=== PATIENT | female | born 1960 | race Caucasian/White ===

== ENCOUNTER 2017-02-04 07:53 | Emergency (ER) | payer OTHER ==
[2017-02-04 08:26] LABS: BILIRUBIN NEGATIVE (NEGATIVE); BLOOD 3+ Ery/uL (NEGATIVE); CLARITY CLEAR (CLEAR); COLOR YELLOW (YELLOW); GLUCOSE (U) NORMAL (NORMAL); KETONE (U) NEGATIVE (NEGATIVE); LEUKOCYTES NEGATIVE Leu/uL (NEGATIVE); NITRITE NEGATIVE (NEGATIVE); PROTEIN TRACE (LOW) mg/dL (NEGATIVE); SPECIFIC GRAVITY >=1.030 (1.001-1.030); UROBILINOGEN 0.2 mg/dL (0.2-1.0); pH 5.5 (5.0-9.0)
[2017-02-04 08:37] LABS: BASOPHIL 0.7 % (0-2); EOSINOPHIL 3.9 % (0-5); HCT 42.2 % (37.0-47.0); HGB 13.9 g/dl (12.5-16.0); LYMPHOCYTE 30.7 % (15-48); MCH 31.2 pg (25.0-31.0); MCHC 32.9 g/dL (32.0-36.0); MCV 94.6 fL (78.0-100.0); MONOCYTE 9.7 % (0-12); MPV 10.2 fL (6.0-9.5); PLT 342 K/uL (150-400); RBC 4.46 M/uL (4.20-5.40); RDW 14.4 % (11.5-14.0); WBC 10.2 K/uL (4.0-10.5)
[2017-02-04 08:41] LABS: ALBUMIN 4.4 g/dL (3.5-5.0); BILIRUBIN - TOTAL 0.5 mg/dL (0.1-1.0); CREATININE 0.8 mg/dL (0.5-1.0); TOTAL PROTEIN 7.4 g/dL (6.4-8.3)
[2017-02-04 08:42] LABS: BACTERIA TRACE; URINARY RBC 20-50
[2017-02-04 08:43] LABS: CALCIUM OXALATE CRYSTALS MODERATE
== END 2017-02-04 11:04 | disposition home or self-care (01) ==
LOC: FER 07:53
PROVIDERS: Emergency Medicine
DX: N13.2 Hydronephrosis with renal and ureteral calculous obstruction (principal); Z98.51 Tubal ligation status
CPT/HCPCS: 36415; 80053; 81001; 82150; 83690; 85025; 87088; J1170; J1885; J2175; J2405

== ENCOUNTER 2021-02-13 19:19 | Emergency (ER) | payer OTHER ==
[2021-02-13 20:21] LABS: EOSINOPHIL 4.2 % (0-5); HGB 13.6 g/dl (12.5-16.0); LYMPHOCYTE 33.8 % (15-48); MCH 32.2 pg (25.0-31.0); MCHC 33.2 g/dL (32.0-36.0); MCV 96.9 fL (78.0-100.0); MONOCYTE 6.2 % (0-12); MPV 10.3 fL (6.0-9.5); NEUTROPHIL 54.6 % (41-80); NRBC 0; PLT 331 K/uL (150-400); RBC 4.23 M/uL (4.20-5.40); RDW 13.8 % (11.5-14.0); WBC 9.2 K/uL (4.0-10.5)
[2021-02-13 20:42] LABS: ALBUMIN 3.9 g/dL (3.4-5.0); CREATININE 0.77 mg/dL (0.51-0.95); GLOBULIN (CALCULATION) 3.9 g/dL; POTASSIUM 3.8 mmol/L (3.5-5.1); TOTAL PROTEIN 7.8 g/dL (6.4-8.2)
[2021-02-13 20:43] LABS: BILIRUBIN - TOTAL 0.2 mg/dL (0.2-1.0)
[2021-02-13 21:31] LABS: BILIRUBIN NEGATIVE (NEGATIVE); BLOOD NEGATIVE Ery/uL (NEGATIVE); CLARITY CLEAR (CLEAR); COLOR YELLOW (YELLOW); GLUCOSE (U) NORMAL (NORMAL); LEUKOCYTES NEGATIVE Leu/uL (NEGATIVE); NITRITE NEGATIVE (NEGATIVE); PROTEIN NEGATIVE (NEGATIVE); UROBILINOGEN 0.2 mg/dL (0.2-1.0)
[2021-02-13] MEDS ORDERED: PERCOCET 5-3251 EACH PO (22:27)
[2021-02-13] MEDS ORDERED: CYCLOBENZAPRINE10 MG PO (22:27)
[2021-02-13] MEDS ORDERED: IBUPROFEN800 MG PO (22:27)
== END 2021-02-13 22:58 | disposition home or self-care (01) ==
LOC: FER 19:19
PROVIDERS: Emergency Medicine Emergency Medical Services
DX: S32.029A Unspecified fracture of second lumbar vertebra, initial encounter for closed fracture (principal); S32.039A Unspecified fracture of third lumbar vertebra, initial encounter for closed fracture; I10 Essential (primary) hypertension; Z98.51 Tubal ligation status; Z79.899 Other long term (current) drug therapy; W18.09XA Striking against other object with subsequent fall, initial encounter
CPT/HCPCS: 36415; 73090; 80053; 81003; 83605; 85025; J1170; J1885; J2405; J7030; Q9967